=== PATIENT | female | born 1985 | race Asian ===

== ENCOUNTER 2017-09-29 06:30 | Outpatient (CLI) | payer OTHER ==
[~2017-09-29] VITALS: Ht 152.4 cm; Wt 49.5 kg
[~2017-09-29 06:30] MED LIST: ACYC-113 PO; LORA10TA75 PO; PREN1TAB27 PO
[2017-09-29 06:43] VITALS: BP 100/61
[2017-09-29 06:57] LABS: PATH.CAST-FLAG NOT PRESENT; SPERM-FLAG NOT PRESENT; SRC-FLAG NOT PRESENT; XTAL-FLAG NOT PRESENT; YLC-FLAG NOT PRESENT
[2017-09-29] MEDS ORDERED: ACETAMINOPHEN 325 MG TABLET ONE (07:10)
[2017-09-29] MEDS ORDERED: ACETAMINOPHEN 325 MG TABLET PO PRN (07:30)
== END 2017-09-29 08:20 | disposition home or self-care (01) ==
LOC: LDOP 06:30
PROVIDERS: ATTEND Obstetrics & Gynecology
DX: O26.892 Other specified pregnancy related conditions, second trimester (principal); O99.89 Other specified diseases and conditions complicating pregnancy, childbirth and the puerperium; N13.30 Unspecified hydronephrosis; Z3A.22 22 weeks gestation of pregnancy
CPT/HCPCS: 59025; 76770; 81001; 87086; 99201; G0463

== ENCOUNTER 2018-02-03 02:27 | Inpatient (IN) | payer OTHER ==
[~2018-02-03] VITALS: Ht 152.4 cm; Wt 56.4 kg
[2018-02-03] MEDS ORDERED: LACTATED RINGERS 1,000 ML IV SCH (02:31)
[2018-02-03] MEDS ORDERED: OXYTOCIN 30U/ 0.9% NaCL 500ML 500 ML IV ONE (02:31)
[2018-02-03] MEDS ORDERED: LIDOCAINE-MPF 1%, 5ML ONE (02:35)
[2018-02-03] MEDS ORDERED: IBUPROFEN 600 MG TABLET ONE (02:57)
[2018-02-03] MEDS ORDERED: MEASLES,MUMPS&RUBELLA VACC/PF 0.5 ML SQ PRN (03:00)
[2018-02-03] MEDS ORDERED: IBUPROFEN 200 MG TABLET PO PRN (03:00)
[2018-02-03] MEDS ORDERED: ONDANSETRON 2MG/ML, 2ML IV PRN (03:00)
[2018-02-03] MEDS: OXYTOCIN 30U/ 0.9% NaCL 500ML 500 ML IV SCH ×3 (03:00→23:00)
[2018-02-03] MEDS ORDERED: DIPH,PERTUSS(ACELL),TET VAC/PF NC IM-VACC PRN (03:00)
[2018-02-03] MEDS ORDERED: MAGNESIUM HYDROXIDE 8%, 30ML UDC PO PRN (03:00)
[2018-02-03] MEDS ORDERED: OXYTOCIN 10 UNITS/ML, 1ML IM ONE (03:00)
[2018-02-03] MEDS ORDERED: OXYcodone IR 5MG TABLET PO PRN (03:00)
[2018-02-03] MEDS ORDERED: OXYcodone/APAP 5/325MG TABLET PO PRN (03:00)
[2018-02-03] MEDS ORDERED: RHOGAM FROM BLOOD BANK 1 NOTE EA IM/IV ONE (03:00)
[2018-02-03] MEDS ORDERED: ONDANSETRON 2MG/ML, 2ML IVPush PRN (03:00)
[2018-02-03] MEDS ORDERED: MISOPROSTOL 200 MCG TABLET PR PRN (03:00)
[2018-02-03] MEDS ORDERED: CALCIUM CARBONATE 500 MG TAB.CHEW PO PRN (03:00)
[2018-02-03] MEDS: IBUPROFEN 600 MG TABLET PO PRN (03:04)
[2018-02-03] MEDS ORDERED: PLEASE ENTER HEIGHT AND WEIGHT MC SCH (03:30)
[2018-02-03 04:08] LABS: MEAN CORPUSCULAR HGB CONC 34.1 g/dL (32.4-35.8); MEAN PLATELET VOLUME 6.8 fL (7.4-10.4); PLATELET COUNT 250 x10^3/uL (130-400); RED BLOOD COUNT 4.67 x10^6/uL (3.82-5.3); RED CELL DISTRIBUTION WIDTH 14.6 % (9.6-15.2)
[2018-02-03 04:21] LABS: MD YES
[2018-02-03 04:23] LABS: <PLATELET ESTIMATE> ADEQUATE; <PLT MORPHOLOGY> NORMAL PLT MORPH; <RBC MORPHOLOGY> NORMAL; BAND#(MANUAL) 0.64 x10^3/uL; BANDS%(MANUAL) 5 % (0-7); EOS#(MANUAL) 0.13 x10^3/uL (0.0-0.4); EOS% (MANUAL) 1 % (1-7); LYMPH#(MANUAL) 0.64 x10^3/uL (1-3.4); LYMPHS% (MANUAL) 5 % (22-44); MONOS#(MANUAL) 0.64 x10^3/uL (0.3-2.7); MONOS% (MANUAL) 5 % (2-9); SEG#(MANUAL) 10.75 x10^3/uL (1.8-6.8); SEGS% (MANUAL) 84 % (42-75)
[2018-02-03 04:25] VITALS: BP 107/60
[2018-02-03] MEDS ORDERED: OXYTOCIN 10 UNITS/ML, 1ML ONE (05:08)
[2018-02-03] MEDS ORDERED: NEWBORN KIT ONE (05:08)
[2018-02-03 07:33] VITALS: BP 96/59
[2018-02-03] MEDS: DOCUSATE 100 MG CAPSULE PO PRN (09:53)
[2018-02-03] MEDS: PRENATAL VIT/IRON/FA 1 EACH TABLET PO SCH (09:53)
[2018-02-03 10:30] LABS: BASOPHILS # (AUTO) 0.04 x10^3/uL (0-0.1); BASOPHILS % (AUTO) 0 % (0-1); EOSINOPHILS # (AUTO) 0.03 x10^3/uL (0-0.4); EOSINOPHILS % (AUTO) 0 % (1-7); LYMPHOCYTES # (AUTO) 1.34 x10^3/uL (1-3.4); LYMPHOCYTES % (AUTO) 11 % (22-44); MD NO; MEAN CORPUSCULAR HEMOGLOBIN 30.5 pg (27.0-34.8); MEAN CORPUSCULAR HGB CONC 33.5 g/dL (32.4-35.8); MEAN CORPUSCULAR VOLUME 90.9 fL (80-100); MEAN PLATELET VOLUME 6.7 fL (7.4-10.4); MONOCYTES # (AUTO) 1.02 x10^3/uL (0.2-0.8); MONOCYTES % (AUTO) 9 % (2-9); NEUTROPHILS # (AUTO) 9.48 x10^3/uL (1.8-6.8); NEUTROPHILS % (AUTO) 80 % (42-75); PLATELET COUNT 267 x10^3/uL (130-400); RED BLOOD COUNT 4.45 x10^6/uL (3.82-5.3); RED CELL DISTRIBUTION WIDTH 14.9 % (9.6-15.2)
[2018-02-03 13:00] VITALS: BP 95/56
[2018-02-03] MEDS ORDERED: IBUP-1222 PO (14:15)
[2018-02-03 16:16] VITALS: BP 97/60
[2018-02-03 19:50] VITALS: BP 116/75
[2018-02-04 07:28] VITALS: BP 101/64
[2018-02-04] MEDS: PRENATAL VIT/IRON/FA 1 EACH TABLET PO SCH (07:41)
[2018-02-04] MEDS: DOCUSATE 100 MG CAPSULE PO PRN (07:41)
[2018-02-04] MEDS: IBUPROFEN 600 MG TABLET PO PRN (07:42)
[2018-02-04] MEDS: OXYTOCIN 30U/ 0.9% NaCL 500ML 500 ML IV SCH (09:00)
== END 2018-02-04 11:42 | disposition home or self-care (01) | DRG 775 ==
LOC: LDOP 02:27 → LDIP 02:29 → 2NW 04:15
PROVIDERS: ADMIT Obstetrics & Gynecology; ATTEND Obstetrics & Gynecology
PROC: 10E0XZZ Delivery of Products of Conception, External Approach (ICD-10-PCS; principal; 2018-02-03)
PROC: 0KQM0ZZ Repair Perineum Muscle, Open Approach (ICD-10-PCS; 2018-02-03)
PROC: 3E033VJ Introduction of Other Hormone into Peripheral Vein, Percutaneous Approach (ICD-10-PCS; 2018-02-03)
PROC: 3E0234Z Introduction of Serum, Toxoid and Vaccine into Muscle, Percutaneous Approach (ICD-10-PCS; 2018-02-03)
PROC: 3E0234Z Introduction of Serum, Toxoid and Vaccine into Muscle, Percutaneous Approach (ICD-10-PCS; 2018-02-03)
DX: O69.81X0 Labor and delivery complicated by cord around neck, without compression, not applicable or unspecified (principal); O62.3 Precipitate labor; O70.1 Second degree perineal laceration during delivery; Z37.0 Single live birth; Z3A.40 40 weeks gestation of pregnancy; Z82.3 Family history of stroke; Z83.3 Family history of diabetes mellitus; Z23 Encounter for immunization
CPT/HCPCS: 36415; 85025; 86850; 86900; J2590